=== PATIENT | female | born 1945 | race Caucasian/White ===

== ENCOUNTER 2018-06-19 08:37 | Day surgery (SDC) | payer OTHER ==
[~2018-06-19] VITALS: Ht 167.6 cm; Wt 73.2 kg
[2018-06-19] MEDS ORDERED: LOSA1TAB37 PO (08:56)
[2018-06-19] MEDS ORDERED: METO25 PO (08:56)
[2018-06-19] MEDS ORDERED: RANO500T3 PO (08:56)
[2018-06-19] MEDS ORDERED: ATOR40TA28 PO (08:56)
[2018-06-19] MEDS ORDERED: VITAD400 PO (08:56)
[2018-06-19] MEDS ORDERED: ASPI-1182 PO (08:56)
[2018-06-19] MEDS ORDERED: AMLO-511 PO (08:56)
[2018-06-19] MEDS ORDERED: METOPROLOL TARTRATE 50 MG TABLET PO PRN (09:00)
[2018-06-19] MEDS ORDERED: 0.9% SODIUM CHLORIDE 10 ML SYRINGE IVP PRN (09:00)
[2018-06-19 09:13] LABS: CALCIUM, TOTAL 9.2 mg/dL (8.8-10.5); CREATININE 1.2 mg/dL (0.60-1.30)
[2018-06-19] MEDS ORDERED: SODIUM CHLORIDE 0.9% 100 ML ONE (09:28)
[2018-06-19] MEDS ORDERED: IOVERSOL 350 MG/ML 150 ML VIAL ONE (09:28)
[2018-06-19] MEDS ORDERED: METOPROLOL TARTRATE 5 MG/5 ML VIAL ONE (09:29)
[2018-06-19] MEDS ORDERED: NITROGLYCERIN 400 MCG/SUBLINGUAL SPRAY 4.9 GM BOTTLE SL ONE (09:29)
== END 2018-06-19 10:15 | disposition home or self-care (01) ==
LOC: SURGERY 08:37 → EDSTATUS 10:30
PROVIDERS: ATTEND Internal Medicine Cardiovascular Disease
DX: I25.118 Atherosclerotic heart disease of native coronary artery with other forms of angina pectoris (principal); M47.814 Spondylosis without myelopathy or radiculopathy, thoracic region; I25.89 Other forms of chronic ischemic heart disease; I49.5 Sick sinus syndrome; E78.00 Pure hypercholesterolemia, unspecified; I45.19 Other right bundle-branch block; I13.0 Hypertensive heart and chronic kidney disease with heart failure and stage 1 through stage 4 chronic kidney disease, or unspecified chronic kidney disease; I50.9 Heart failure, unspecified; N18.9 Chronic kidney disease, unspecified; Z86.79 Personal history of other diseases of the circulatory system; Z79.82 Long term (current) use of aspirin; Z79.2 Long term (current) use of antibiotics; Z79.891 Long term (current) use of opiate analgesic; Z79.899 Other long term (current) drug therapy
CPT/HCPCS: 36415; 75574; 80048; 93005; J7050; Q9967; J3490